=== PATIENT | male | born 1990 | race Caucasian/White ===

== ENCOUNTER 2017-07-03 11:47 | Emergency (ER) | payer MEDICARE | END 2017-07-03 12:35 | disposition home or self-care (01) | LOC: MADERS 11:47 | DX: S29.019A Strain of muscle and tendon of unspecified wall of thorax, initial encounter (principal); S39.012A Strain of muscle, fascia and tendon of lower back, initial encounter; X58.XXXA Exposure to other specified factors, initial encounter | CPT/HCPCS: 99283 ==

== ENCOUNTER 2017-07-04 21:04 | Emergency (ER) | payer MEDICARE ==
[2017-07-04] MEDS ORDERED: HYDROcodone/Acetaminophen 5/325 mg Tablet ONE (21:47)
[2017-07-04] MEDS ORDERED: Ketorolac Tromethamine 60 MG/2 ML VIAL ONE (21:47)
[2017-07-04] MEDS ORDERED: Diazepam 5 MG TAB ONE (21:47)
== END 2017-07-04 22:15 | disposition home or self-care (01) ==
LOC: MADERS 21:04
DX: M54.5 Low back pain (principal)
CPT/HCPCS: 96372; J1885